=== PATIENT | female | born 1935 | race Caucasian/White ===

== ENCOUNTER 2017-02-26 12:29 | Emergency (ER) | payer OTHER ==
[~2017-02-26 12:29] MED LIST: ACTOS PO; ALTOPREV40 MG PO; ASPIRIN PO; ASPIRIN81 MG PO; AUGMENTIN875 MG PO; BENZONATATE PO; CENTRUM SILVER PO; COREG6.25 MG PO; COZAAR100 MG PO; DESYREL50 M1 PO; DESYREL50 MG PO; FAMVIR500 MG PO; GLUCOPHAGE500 M1 PO; IRON1 TA1 PO; LANTUS100 U/ML INJ; LANTUS100 U/ML SUBQ; LASIX20 MG PO; LEVAQUIN750 M1 PO; LIPITOR PO; LOPID600 MG PO; LOPRESSOR PO; LOVASTATIN20 MG PO; LOZOL PO; METFORMIN PO; METOPROLOL TAR100 MG PO; PLAVIX PO; TESSALON200 MG PO; TOPROL XL PO; TRAZODONE PO; TYLOX 5/500 CAP1 CAP PO; ZITHROMAX PO
== END 2017-02-26 13:08 | disposition home or self-care (01) ==
LOC: CFTX 12:29
DX: S51.812A Laceration without foreign body of left forearm, initial encounter (principal); E11.9 Type 2 diabetes mellitus without complications; I10 Essential (primary) hypertension; Z95.1 Presence of aortocoronary bypass graft; Z98.890 Other specified postprocedural states; Z88.0 Allergy status to penicillin; Z88.8 Allergy status to other drugs, medicaments and biological substances; W18.00XA Striking against unspecified object with subsequent fall, initial encounter; Y92.9 Unspecified place or not applicable
CPT/HCPCS: 99282; 99283